=== PATIENT | male | born 1950 | race Caucasian/White ===

== ENCOUNTER 2019-07-04 16:37 | Inpatient (IN) | payer MEDICARE ==
[~2019-07-04] VITALS: Ht 153.7 cm; Wt 64.4 kg
[~2019-07-04 16:37] MED LIST: ACETAMINOPHEN 1000 MG/100 ML IV ONE; CEFAZOLIN SOD 1 GM VIAL ONE; DEXAMETHASONE SOD PHOS INJ 4 MG/ML VIAL ONE; FENTANYL CITRATE/PF 100MCG/2 ML INJ ONE; LIDOCAINE HCL 2% LOCAL INJ 5 ML SDV VIAL INJ ONE; ONDANSETRON HCL INJ 2MG/ML 2ML 2 MG/ML VIAL ONE; PROPOFOL IV EMULSION 10 MG/ML 20 ML VIAL ONE; SEVOFLURANE INHAL SOLN 250 ML PEN BTL ONE
[2019-07-04] MEDS ORDERED: TETANUS/DIPHTHERIA TOX ADULT 0.5 ML SYR IM ONE (16:45)
[2019-07-04] MEDS ORDERED: LIDOCAINE 1% W/EPINEPHRINE 20 ML VIAL INJ ONE (16:45)
[2019-07-04] MEDS ORDERED: SODIUM CHLORIDE 0.9% 1000ML 1,000 ML IV STA ×2 (16:50)
[2019-07-04] MEDS ORDERED: MORPHINE SULFATE INJ 4 MG/ML INJ 1ML IV STA (16:50)
[2019-07-04] MEDS ORDERED: ONDANSETRON HCL INJ 2MG/ML 2ML 2 MG/ML VIAL IV STA (16:50)
[2019-07-04 17:21] LABS: BASOPHILS % 0.4 % (0.0-1.0); EOSINOPHILS # (AUTO) 0.4 (0.0-0.4); EOSINOPHILS % 4.2 % (0.0-6.0); HEMATOCRIT 36.5 % (38.2-49.6); HEMOGLOBIN 12.2 g/dL (14.0-18.0); LYMPHOCYTES # (AUTO) 1.1 (1.0-3.2); LYMPHOCYTES % 13.1 % (18.0-39.1); MEAN CORPUSCULAR HGB CONC 33.4 g/dL (31-35); MEAN CORPUSCULAR VOLUME 92.9 fL (81-99); MONOCYTES # (AUTO) 0.7 (0.2-0.8); MONOCYTES % 7.9 % (4.4-11.3); NEUTROPHILS # (AUTO) 6.3 (2.1-6.9); NEUTROPHILS % 74.3 % (38.7-80.0); PLATELET COUNT 245 x10e3/uL (140-360); RED BLOOD COUNT 3.93 x10e6/uL (4.3-5.7); RED CELL DISTRIBUTION WIDTH 13.5 % (11.7-14.4)
[2019-07-04 17:28] LABS: INR 1.05; PROTHROMBIN TIME 14.2 seconds (11.9-14.5)
[2019-07-04 17:29] LABS: PARTIAL THROMBOPLASTIN TIME 32.4 seconds (23.8-35.5)
[2019-07-04] MEDS ORDERED: PIPER-TAZ 3.375 GM 50 ML IV ONE (17:35)
[2019-07-04 17:38] LABS: ALBUMIN 3.9 g/dL (3.5-5.0); ALBUMIN/GLOBULIN RATIO 1.2 (0.8-2.0); CALCIUM 9.3 mg/dL (8.4-10.2); CREATININE, SERUM 1.66 mg/dL (0.72-1.25)
[2019-07-04] MEDS ORDERED: SODIUM CHLORIDE 0.9% 1000ML 1,000 ML IV SCH (17:38)
[2019-07-04] MEDS ORDERED: ONDANSETRON HCL INJ 2MG/ML 2ML 2 MG/ML VIAL IV PRN ×2 (17:45→19:30)
[2019-07-04] MEDS ORDERED: BACITRACIN 50,000 UNIT VIAL ONE (17:58)
[2019-07-04] MEDS ORDERED: VANCOMYCIN 1GM/NS 250 ML 250 ML IV ONE (18:00)
[2019-07-04] MEDS ORDERED: PIPER-TAZ 3.375 GM 50 ML IV SCH (18:00)
[2019-07-04] MEDS ORDERED: MORPHINE SULFATE 2 MG/ML SYR 1ML IV PRN (18:00)
[2019-07-04] MEDS ORDERED: MORPHINE SULFATE INJ 4 MG/ML INJ 1ML IV PRN (18:00)
--- NOTE | 2019-07-04 18:05 | Diagnostic Imaging Report ---
EXAMINATION: CHEST SINGLE (PORTABLE) INDICATION: Left knee laceration. ^ERMD ORDER ^[id number] ^1720 ^Y COMPARISON: None FINDINGS: TUBES and LINES: None. LUNGS: Lungs are well inflated. Lungs are clear. There is no evidence of pneumonia or pulmonary edema. PLEURA: No pleural effusion or pneumothorax. HEART AND MEDIASTINUM: The cardiomediastinal silhouette is unremarkable. BONES AND SOFT TISSUES: No acute osseous lesion. Soft tissues are unremarkable. UPPER ABDOMEN: No free air under the diaphragm. IMPRESSION: No acute thoracic abnormality. Signed by: Dr. Abisai Moore M.D. on 07/04/2019 6:02 PM
--- NOTE | 2019-07-04 18:07 | Diagnostic Imaging Report ---
Radiographs of the left knee - 3 views HISTORY: Pain COMPARISON: None available. FINDINGS: Bones: No acute displaced fracture. Osseous alignment is within normal limits. Joints: Scattered degenerative change. No osseous erosion Soft tissues: Soft tissue laceration and subcutaneous emphysema superior and posterior to the patella. IMPRESSION: Soft tissue laceration and subcutaneous emphysema superior and posterior to the patella. Signed by: Dr. Abisai Moore M.D. on 07/04/2019 6:04 PM
[2019-07-04] MEDS ORDERED: VANCOMYCIN 1GM/NS 250 ML 250 ML IV SCH (18:30)
--- OUTSIDE RECORDS SUMMARY | 2019-07-04 19:15 | XMS REPORT ---
Author Author [facility] Address Unknown Phone Unavailable Care Team Providers Care Commercial Litigation Attorney Name Role Phone BECKA PEREZ Unavailable Unavailable Problems This patient has no known problems. Allergies, Adverse Reactions, Alerts This patient has no known allergies or adverse reactions. Medications This patient has no known medications. Results Test Description Test Time Test Comments Text Results Atomic Results Result Comments CHEST SINGLE (PORTABLE) 2019-07-04 18:02:00 [place] [id number] Patient Name: WEST ANAND MR #: [id number] : 1950 Age/Sex: 69/M Req #: [id number] Adm Physician: Ordered by: BECKA PEREZ MD, MD Report #: [id number] Location: ER Room/Bed: Procedure: [id number] DX/CHEST SINGLE (PORTABLE) Exam Date: 07/04/19 Exam Time: 1720 REPORT STATUS: Signed EXAMINATION: CHEST SINGLE (PORTABLE) INDICATION: Left knee laceration. ERMD ORDER [id number] 1720 Y COMPARISON: None FINDINGS: TUBES and LINES: None. LUNGS: Lungs are well inflated. Lungs are clear. There is no evidence of pneumonia or pulmonary edema. PLEURA: No pleural effusion or pneumothorax. HEART AND MEDIASTINUM: The cardiomediastinal silhouette is unremarkable. BONES AND SOFT TISSUES: No acute osseous lesion. Soft tissues are unremarkable. UPPER ABDOMEN: No free air under the diaphragm. IMPRESSION: No acute thoracic abnormality. Signed by: Dr. Abisai Moore M.D. on 07/04/2019 6:02 PM Dictated By: ABISAI MOORE MD, MD 01 Transcribed By: ISAC on 07/04/191801 COPY TO: BECKA PEREZ KNEE LEFT THREE VIEWS 2019-07-04 18:02:00 [place] [address] Patient Name: WEST ANAND MR #: [id number] : 1950 Age/Sex: 69/M Req #: [id number] Adm Physician: Ordered by: BECKA PEREZ MD, MD Report #: [id number] Location: ER Room/Bed: Procedure: [id number] DX/KNEE LEFT THREE VIEWS Exam Date: 07/04/19 Exam Time: 1720 REPORT STATUS: Signed Radiographs of the left knee - 3 views HISTORY: Pain COMPARISON: None available. FINDINGS: Bones: No acute displaced fracture. Osseous alignment is within normal limits. Joints: Scattered degenerative change. No osseous erosion Soft tissues: Soft tissue laceration and subcutaneous emphysema superior and posterior to the patella. IMPRESSION: Soft tissue laceration and subcutaneous emphysema superior and posterior to the patella. Signed by: Dr. Abisai Moore M.D. on 07/04/2019 6:04 PM Dictated By: ABISAI MOORE MD, MD 03 Transcribed By: ISAC on 07/04/191803 COPY TO: BECKA PEREZ
[2019-07-04] MEDS: SODIUM CHLORIDE 0.9% 1000ML 1,000 ML IV SCH ×2 (19:23→21:00)
[2019-07-04] MEDS ORDERED: DIPHENHYDRAMINE HCL INJ 50 MG/ML VIAL IM/IV PRN (19:30)
[2019-07-04] MEDS ORDERED: NALOXONE HCL INJ 0.4 MG/ML AMP IV PRN (19:30)
[2019-07-04] MEDS ORDERED: HYDROMORPHONE 0.2MG/ML-SOD CHL 30ML PCA SYRINGE IV PRN (19:30)
[2019-07-04] MEDS ORDERED: MEPERIDINE HCL INJ 25 MG/ML VIAL ONE (19:37)
[2019-07-04] MEDS ORDERED: HYDROMORPHONE 0.2MG/ML-SOD CHL 30ML PCA SYRINGE IV ONE (19:50)
[2019-07-04] MEDS ORDERED: HYDRALAZINE HCL 20 MG/ML VIAL ONE (20:02)
[2019-07-04] MEDS ORDERED: FENTANYL CITRATE/PF 100MCG/2 ML INJ ONE (20:02)
[2019-07-04 20:21] VITALS: BP 186/84
[2019-07-04] MEDS: CEFAZOLIN SOD 1 GM/NS 50ML 50 ML IV SCH (21:18)
[2019-07-04 21:28] VITALS: BP 186/84
[2019-07-04] MEDS ORDERED: ADVAIR HFA 115-12 GM IH (21:54)
[2019-07-04] MEDS ORDERED: FLUTICASONE PRO15 GM (21:57)
[2019-07-04 22:00] VITALS: BP 186/84
[2019-07-04] MEDS: CLONIDINE HCL 0.1 MG TAB PO PRN (22:31)
[2019-07-05] VITALS (8 sets, daily range): BP systolic 132–176; BP diastolic 64–82
[2019-07-05] MEDS: PIPER-TAZ 3.375 GM 50 ML IV SCH ×4 (00:14→19:10)
[2019-07-05 01:20] LABS: CLARITY,URINE CLEAR (CLEAR); COLOR,URINE YELLOW (YELLOW); KETONES,URINE NEGATIVE (NEGATIVE); LEUKOCYTE ESTERASE ,URINE NEGATIVE (NEGATIVE); NITRITE,URINE NEGATIVE (NEGATIVE); PROTEIN,URINE DIPSTICK NEGATIVE (NEGATIVE); URINE UROBILINOGEN 0.2 mg/dL (0.2 - 1)
[2019-07-05 01:21] LABS: BACTERIA,URINE FEW /HPF; BILIRUBIN,URINE NEGATIVE (NEGATIVE); EPITHELIAL CELLS,URINE FEW /LPF; WBC,URINE (MAN) 0-5 /HPF (0-5)
--- NOTE | 2019-07-05 03:43 | History and Physical ---
PRIMARY CARE PHYSICIAN: Dr. Alec Lind with [facility]. CHIEF COMPLAINT: Left laceration after an accident. CONSULTING PHYSICIAN: Dr. Pablo with Orthopedics. HISTORY OF PRESENT ILLNESS: This is a 69-year-old male with past medical history of hypertension, arthritis, asthma, high cholesterol, and hypothyroidism presented to the ER after he had a with approximately 2 inches of laceration borderline to his knee. The wound bed is red and [place]. He is able to move his extremity. He reports pain has improved a little . He denies any shortness of breath, chest pain, or dizziness. He is bleeding at the joint site has stopped. X-ray was done, which showed no acute fracture. Orthopedics was consulted for evaluation of the knee. He is admitted for further evaluation and management of the left knee laceration. PAST MEDICAL HISTORY: 1. Hypertension. 2. Arthritis. 3. Asthma. 4. High cholesterol. 5. Hypothyroidism. PAST SURGICAL HISTORY: 1. 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 2. Carpal tunnel of bilateral upper extremities. FAMILY HISTORY: He reports none. SOCIAL HISTORY: He denies any tobacco use or illicit drug use. He drinks alcohol occasionally. REVIEW OF SYSTEMS: GENERAL: No acute distress. HEENT: No head trauma. No mouth sores. LUNGS: No shortness of breath or cough. CARDIOVASCULAR: No chest pain or palpitations. GI: No nausea or vomiting. NEUROLOGIC: No dizziness or focal weakness. MUSCULOSKELETAL: Left knee laceration. Movement with decreased . SKIN: Dry and intact. Left knee laceration noted status post injury. PHYSICAL EXAMINATION: VITAL SIGNS: Temperature 97.7, pulse is 90, respirations 22, blood pressure is 162/79, and pulse ox is 99% on room air. GENERAL: No acute distress. HEENT: Normocephalic, atraumatic. PERRLA. LUNGS: Clear to auscultation. CARDIOVASCULAR: S1 and S2. No murmurs heard. GI: Nontender and soft. NEURO: Alert, awake, oriented x3. MUSCULOSKELETAL: Left lower extremity with limited ROM due to pain. No edema noted. SKIN: . LABORATORY DATA: WBC 8.4, hemoglobin 12.2, hematocrit 36.5, platelets 345. Chemistries; sodium 134, potassium 4.0, carbon dioxide 26, anion gap is 11, BUN 34, creatinine is 1.66, estimated GFR is 41. Glucose is 96. AST is 28, ALT 35. PT 14.2, INR 1.05, aPTT 32.4. IMAGING: Chest x-ray shows no acute thoracic abnormality. Left knee x-ray shows soft tissue laceration and subcutaneous emphysema . IMPRESSION AND PLAN: 1. Left knee injury with laceration. septic joint. Orthopedics has been consulted and is planning I and D of the left knee. We will continue with pain management as needed. 2. Acute kidney injury. Creatinine is . We will continue with IV fluid hydration. We will repeat labs in the a.m. 3. Hyponatremia. Sodium is 134. We will continue with IV fluids and repeat labs in the a.m. 4. Hypertension. and we will treat with clonidine as needed. 5. Arthritis. We will continue with his ]NSAIDs. 6. Asthma inhalers for a while. 7. High cholesterol. We will resume home medications. 8. Hypothyroidism. We will resume his home dose of Synthroid. 9. Deep venous thrombosis prophylaxis tomorrow per Ortho. Dictated by MARION Arriaga Mt Bergman MD MY/MODL /[id number]
[2019-07-05] MEDS: CEFAZOLIN SOD 1 GM/NS 50ML 50 ML IV SCH ×2 (05:05→14:41)
[2019-07-05] MEDS: SODIUM CHLORIDE 0.9% 1000ML 1,000 ML IV SCH ×2 (05:23→14:41)
[2019-07-05 05:37] LABS: HEMATOCRIT 32.6 % (38.2-49.6); HEMOGLOBIN 10.8 g/dL (14.0-18.0)
[2019-07-05 05:51] LABS: CALCIUM 8.5 mg/dL (8.4-10.2); CREATININE, SERUM 1.41 mg/dL (0.72-1.25)
[2019-07-05] MEDS: VANCOMYCIN 1GM/NS 250 ML 250 ML IV SCH ×2 (06:36→17:11)
[2019-07-05] MEDS ORDERED: LOSARTAN POTAS100 MG PO (08:31)
[2019-07-05] MEDS ORDERED: HYDROCHLOROTHIA25 MG PO (08:31)
[2019-07-05] MEDS ORDERED: LEVOTHYROXINE50 MCG PO (08:31)
[2019-07-05] MEDS ORDERED: CRESTOR20 MG PO (08:31)
[2019-07-05] MEDS: RIVAROXABAN 10 MG TABLET PO SCH (08:52)
[2019-07-05] MEDS: MELOXICAM 7.5 MG TAB PO SCH (08:52)
[2019-07-05] MEDS: LACTOBACILLUS ACIDOPHILUS CAPSULE PO SCH ×2 (08:52→17:11)
[2019-07-05] MEDS: LOSARTAN POTASSIUM 100 MG TAB PO SCH (14:41)
[2019-07-05] MEDS: HYDROCHLOROTHIAZIDE 25 MG TAB PO SCH (14:41)
--- NOTE | 2019-07-05 16:17 | Operative Report ---
DATE OF PROCEDURE: 07/04/2019 SURGEON: Alonso Martinez MD PREOPERATIVE DIAGNOSIS: Open left knee joint. POSTOPERATIVE DIAGNOSIS: Open left knee joint as well as a partial quadriceps tendon tear. OPERATION/PROCEDURE PERFORMED: 1. The patient underwent irrigation, debridement of the open left knee joint. 2. Repair of the left quadriceps partial tendon tear. COAL TRIMMER MACHINE OPERATOR: There was no therapeutic assistant. ANESTHESIA: General endotracheal intubation anesthesia. IV FLUIDS: Per anesthesia record. BRIEF DESCRIPTION OF THE PATIENT'S OPERATIVE PROCEDURE: Mr. Bruno was taken to the operating room, placed in supine position on the operating table. Following induction of general anesthesia as well as the endotracheal intubation, the patient's left lower extremity was examined under anesthesia. Found to have a laceration over the superior lateral aspect of the left knee at the level of the patella. This was a deep laceration that clearly penetrated the left knee joint. The patient's lower extremity was prepped and draped in standard surgical fashion. The case was begun by extending the patient's laceration both proximally and distally to allow full visualization of the injury. Blunt dissection was used to deepen the incision to the level of the extensor mechanism. The patient was found to have a laceration through the tendinous portion of the quadriceps tendon that encompassed approximately 40% of the tendon. The lateral retinaculum was also disrupted. The knee was copiously irrigated with 3 L of bacitracin infused normal saline followed by a 2nd 3 L bag of regular normal saline in a pulse lavage fashion. Once this was achieved, a drain was placed within the knee joint. The quadriceps tendon was then repaired in end-to-end fashion with Prolene suture. The retinaculum was also repaired in a similar [id number] fashion. The remaining soft tissues were closed in a multilayer fashion. Sterile dressings were applied as well as the knee immobilizer. The patient was then awakened and taken to the postanesthesia care unit in stable condition. Alonso Martinez MD EBR/MODL /[id number]
--- NOTE | 2019-07-05 16:32 | Progress Note ---
DATE: 07/05/2019 CHIEF COMPLAINT: Left knee open wound status post injury. CONSULTING PHYSICIAN: Dr. Pablo with Orthopedics. SUBJECTIVE: Status post left knee I and D, drain in place. Physical therapy and weight as tolerated. Denies any fever, pain is tolerable at 6/10, no swelling noted, wiggles toes. No discoloration noted. Palpable pulses. PHYSICAL EXAMINATION: VITAL SIGNS: Temperature 97.3, pulse is 66, respirations 17, blood pressure 176/82, pulse is 96 on room air. GENERAL: No acute distress. HEENT: Normocephalic, atraumatic. LUNGS: Clear to auscultation. CARDIOVASCULAR: Regular rate and rhythm. GI: Soft and nontender. NEURO: Alert, awake, oriented x3. MUSCULOSKELETAL: Left lower extremity with limited ROM due to pain. No edema. SKIN: Dry and intact. Left knee, status post I and D. Dressing intact. Drain in place. PSYCH: Normal affect and mood LABORATORY DATA: Hemoglobin 10.8 today. Sodium 134, potassium 4.0, BUN is 24, creatinine is 1.41, estimated GFR 50. IMPRESSION AND PLAN: 1. Left knee injury with laceration, status post I and D by Dr. Pablo. We will continue with IV antibiotics, pain management as needed and physical therapy. 2. Acute kidney injury. Creatinine is improving at 1.4. We will continue with IV fluid hydration and repeat labs in a.m. 3. Anemia. Hemoglobin down to 10. We will continue to monitor slowly likely due to surgery. We will repeat labs in a.m. 4. Hyponatremia. We will continue with IV fluids and repeat in a.m. 5. Hypertension. We will continue his home medications and give clonidine as needed. 6. History of arthritis. We will continue with his meloxicam. 7. History of asthma. We will resume albuterol as needed. 8. High cholesterol. Continue statin. 9. Hypothyroidism. We will resume home dose of the Synthroid. 10. Deep vein thrombosis prophylaxis. Xarelto started per Ortho. 11. Disposition plan. Discharge home tomorrow per Ortho. Continue PT. MARION Arriaga MY/MODL /[id number]
[2019-07-05] MEDS: CLONIDINE HCL 0.1 MG TAB PO PRN (17:11)
[2019-07-05] MEDS ORDERED: CRESTOR 10MG PO SCH (21:00)
[2019-07-06] VITALS: BP 162/79
[2019-07-06] MEDS: PIPER-TAZ 3.375 GM 50 ML IV SCH ×2 (00:10→05:11)
[2019-07-06] MEDS: SODIUM CHLORIDE 0.9% 1000ML 1,000 ML IV SCH ×2 (01:23→05:12)
[2019-07-06 04:00] VITALS: BP 181/83
[2019-07-06 05:47] LABS: BASOPHILS % 0.3 % (0.0-1.0); EOSINOPHILS # (AUTO) 0.2 (0.0-0.4); EOSINOPHILS % 4.1 % (0.0-6.0); HEMATOCRIT 32.4 % (38.2-49.6); HEMOGLOBIN 10.6 g/dL (14.0-18.0); LYMPHOCYTES % 16.7 % (18.0-39.1); MEAN CORPUSCULAR HEMOGLOBIN 30.7 pg (28-32); MEAN CORPUSCULAR HGB CONC 32.7 g/dL (31-35); MEAN CORPUSCULAR VOLUME 93.9 fL (81-99); MONOCYTES # (AUTO) 0.7 (0.2-0.8); MONOCYTES % 12.1 % (4.4-11.3); NEUTROPHILS # (AUTO) 3.9 (2.1-6.9); NEUTROPHILS % 66.6 % (38.7-80.0); PLATELET COUNT 204 x10e3/uL (140-360); RED BLOOD COUNT 3.45 x10e6/uL (4.3-5.7); RED CELL DISTRIBUTION WIDTH 13.6 % (11.7-14.4)
[2019-07-06] MEDS ORDERED: LEVOTHYROXINE SODIUM 75 MCG TAB PO SCH (06:00)
[2019-07-06] MEDS: VANCOMYCIN 1GM/NS 250 ML 250 ML IV SCH (06:00)
[2019-07-06 06:06] LABS: ANION GAP 9.2 mmol/L (8-16); CALCIUM 8.5 mg/dL (8.4-10.2); CREATININE, SERUM 1.24 mg/dL (0.72-1.25); POTASSIUM 4.2 mmol/L (3.5-5.1)
[2019-07-06] MEDS: CLONIDINE HCL 0.1 MG TAB PO PRN (06:48)
[2019-07-06 08:14] VITALS: BP 141/76
[2019-07-06] MEDS: MELOXICAM 7.5 MG TAB PO SCH (08:37)
[2019-07-06] MEDS: RIVAROXABAN 10 MG TABLET PO SCH (08:37)
[2019-07-06] MEDS: HYDROCHLOROTHIAZIDE 25 MG TAB PO SCH (08:37)
[2019-07-06] MEDS: LACTOBACILLUS ACIDOPHILUS CAPSULE PO SCH (08:37)
[2019-07-06] MEDS: LOSARTAN POTASSIUM 100 MG TAB PO SCH (08:37)
[2019-07-06 08:44] VITALS: BP 141/76
[2019-07-06] MEDS ORDERED: FLUTICASONE PROPIONATE 0.05% TP SCH (09:00)
[2019-07-06] MEDS ORDERED: LEVOTHYROXINE SODIUM 50 MCG TAB PO SCH (09:00)
[2019-07-06] MEDS ORDERED: INFLUENZA VIRUS VAC SPLIT INJ 0.5 ML SYR IM ONE (09:00)
[2019-07-06] MEDS ORDERED: NON-FORMULARY MEDICATION (Rosuvastatin Calcium (Crestor) 20 MG) PO SCH (09:00)
[2019-07-06 12:51] VITALS: BP 188/95
--- NOTE | 2019-07-07 11:25 | Discharge Summary ---
PRIMARY CARE PHYSICIAN: Dr. Alec Lind, with [facility]. FINAL DIAGNOSES: 1. Left knee injury status post surgical debridement by orthopedics, Dr. Pablo. 2. Acute kidney injury. 3. Anemia. 4. Hyponatremia. 5. Hypertension. 6. History of arthritis. 7. History of asthma. 8. High cholesterol. 9. Hypothyroidism. CONSULTANTS: Dr. Pablo with Orthopedics. PROCEDURES: Surgical debridement of the left main. HISTORY: Per HPI. HOSPITAL COURSE: This is a 69-year-old male, who came in status post left knee injury with open laceration. Orthopedics was consulted and underwent I and D in the OR. He was started on IV antibiotics. Knee x-ray showed soft tissue laceration and subcutaneous emphysema superior and posterior to the patella. He was placed on the immobilizer status post I and D with IV antibiotics. His labs remained stable. No white count. No fever. He was up with physical therapy. Able to ambulate with assistance. Today, he is sitting up. Pain is controlled with medication and is cleared by Orthopedics for discharge on p.o. antibiotics and pain medication. Xarelto for anticoagulation for DVT prophylaxis. PHYSICAL EXAMINATION: VITAL SIGNS: Temperature 96.9, pulse is 61, respirations 20, blood pressure 141/76, pulse ox is 98% on room air. GENERAL: No acute distress. HEENT: Normocephalic, atraumatic. LUNGS: Clear to auscultation. CARDIOVASCULAR: Regular rate and rhythm. ABDOMEN: Soft and nontender. NEUROLOGIC: Alert, awake, oriented x3. MUSCULOSKELETAL: Left lower extremity decreased ROM due to pain and surgery. Otherwise, no edema. SKIN: Dry and intact. CONDITION AT DISCHARGE: Improved and stable. DISCHARGE MEDICATIONS: See medication reconciliation list. FOLLOWUP: Follow up with Dr. Pablo with Orthopedics in 10 to 14 days. Follow up with PCP, Dr. Alec Lind in 1 to 2 weeks. TIME SPENT: Total time of discharge is 32 minute. MARION Arriaga MY/MODL /[id number] cc: Dr. Alec Lind
== END 2019-07-06 13:10 | disposition home or self-care (01) | DRG 488 ==
LOC: ER 16:37 → MED/SURG 17:47 → ER 18:31
PROVIDERS: ADMIT Internal Medicine; ATTEND Internal Medicine
PROC: 0LQM0ZZ Repair Left Upper Leg Tendon, Open Approach (ICD-10-PCS; 2019-07-04)
PROC: 0SBC0ZZ Excision of Right Knee Joint, Open Approach (ICD-10-PCS; principal; 2019-07-04 18:26)
DX: S76.112A Strain of left quadriceps muscle, fascia and tendon, initial encounter (principal); N17.9 Acute kidney failure, unspecified; E87.1 Hypo-osmolality and hyponatremia; M00.862 Arthritis due to other bacteria, left knee; J45.909 Unspecified asthma, uncomplicated; E03.9 Hypothyroidism, unspecified; E78.00 Pure hypercholesterolemia, unspecified; W19.XXXA Unspecified fall, initial encounter; S81.012A Laceration without foreign body, left knee, initial encounter; Y93.9 Activity, unspecified; Y92.830 Public park as the place of occurrence of the external cause; I10 Essential (primary) hypertension
CPT/HCPCS: 36415; 71045; 80048; 80053; 81001; 85014; 85018; 85025; 85610; 85730; 86850; 86900; 93005; 97139; 99284; J0360; J0690; J1100; J2001; J2175; J2405; J2543; J3010; J3370; J7030